=== PATIENT | female | born 1970 | race Caucasian/White ===

== ENCOUNTER 2016-08-07 08:22 | Emergency (ER) | payer MEDICAID ==
[2016-08-07 08:51] VITALS: RESP 18
--- NOTE | 2016-08-07 09:58 | ED PDOC ---
Arrival/HPI - General Historian: Patient - General Chief Complaint: Upper Extremity Problem/Injury Time Seen by Provider: 08/07/16 09:01 - History of Present Illness Narrative History of Present Illness (Text): 08/07/16 09:55 45yo female with no PMHx present with complaint of left sided shoulder pain that radiates to her hands. States pain is intermittent and "shooting". also radiates to her neck. States pain started early this morning. Took 2tabs of Advil at 0700am without relieve. Pain is worse with abduction of left arm. Denies trauma, chest pain, paresthesia, focal weakness, any other complaint. ( Jame Mathias A) Past Medical History - Provider Review Nursing Documentation Reviewed: Yes - Infectious Disease Hx of Infectious Diseases: None - Musculoskeletal/Rheumatological Hx Arthritis: Yes - Psychiatric Hx Substance Use: No - Surgical History Other/Comment: Right foot surgery Family/Social History - Physician Review Nursing Documentation Reviewed: Yes Family/Social History: Unknown Family HX Smoking Status: Never Smoked Hx Alcohol Use: Yes Frequency of alcohol use: Socially Hx Substance Use: No Allergies/Home Meds Allergies/Adverse Reactions: Allergies No Known Allergies Allergy (Verified 08/07/16 08:45) Review of Systems - Physician Review All systems were reviewed & negative as marked: Yes - Review of Systems Constitutional: Normal Eyes: Normal ENT: Normal Respiratory: Normal Cardiovascular: Normal Gastrointestinal: Normal Genitourinary Female: Normal Musculoskeletal: Arthralgias (Left shoulder pain) Skin: Normal Neurological: Normal Endocrine: Normal Hemo/Lymphatic: Normal Psychiatric: Normal Physical Exam Vital Signs Reviewed: Yes Temperature: Afebrile Blood Pressure: Normal Pulse: Regular Respiratory Rate: Normal Appearance: Positive for: Well-Appearing, Non-Toxic, Comfortable Pain Distress: None Mental Status: Positive for: Alert and Oriented X 3 - Systems Exam Head: Present: Atraumatic, Normocephalic Pupils: Present: PERRL Extroacular Muscles: Present: EOMI Conjunctiva: Present: Normal Mouth: Present: Moist Mucous Membranes Neck: Present: Normal Range of Motion Respiratory/Chest: Present: Clear to Auscultation, Good Air Exchange. No: Respiratory Distress, Accessory Muscle Use Cardiovascular: Present: Regular Rate and Rhythm, Normal S1, S2. No: Murmurs Abdomen: Present: Normal Bowel Sounds. No: Tenderness, Distention, Peritoneal Signs Back: Present: Normal Inspection Upper Extremity: Present: Tenderness (Left proximal shoulder), Neurovascularly Intact, Capillary Refill < 2s, Norm 2-Pt Discrimination. No: Cyanosis, Edema, Normal ROM (Limited on Abduction up to 90degree), Swelling, Erythema, Temperature Abnormalties, Deformity Lower Extremity: Present: Normal Inspection. No: Edema Neurological: Present: GCS=15, CN II-XII Intact, Speech Normal Skin: Present: Warm, Dry, Normal Color. No: Rashes Psychiatric: Present: Alert, Oriented x 3, Normal Insight, Normal Concentration Vital Signs Temp Pulse Resp BP Pulse Ox 08/07/16 10:00 98.2 F 75 18 124/71 99 08/07/16 09:29 79 18 126/75 98 08/07/16 08:51 98.4 F 81 18 128/79 98 08/07/16 08:37 98.4 F 81 16 128/79 99 Medical Decision Making ED Course and Treatment: I was available for consultation during PA evaluation. The chart was reviewed by me, and I agree with disposition. The documented history was done by the physician vapor coater. The documented physical exam was done by the physician vapor coater. The documented procedures were done by the physician vapor coater. (Paul Queen) 08/07/16 19:23 Left shoulder xray - No acute finding noted Pt's pain was controlled in ED with medication. Result was DW the pt. She was DC home with a referral to the PMD/ortho. TRT ED for any new or worsening symptoms. (Jame Mathias) - RAD Interpretation Radiology Orders: 08/07/16 09:01 SHOULDER LEFT [RAD] Stat - Medication Orders Current Medication Orders: Discontinued Medications Ketorolac Tromethamine (Toradol) 60 mg IM STAT STA Stop: 08/07/16 09:02 Last Admin: 08/07/16 10:06 Dose: 60 MG IM Administration Charges Document 08/07/16 10:06 SS (Rec: 08/07/16 10:14 SS [id number]) Injection Site MAR Injection Site Left Gluteus Isaac Charges for Administration # of IM Administrations 1 Disposition/Present on Arrival - Present on Arrival Any Indicators Present on Arrival: No History of DVT/PE: No History of Uncontrolled Diabetes: No Urinary Catheter: No History of Decub. Ulcer: No History Surgical Site Infection Following: None - Disposition Have Diagnosis and Disposition been Completed?: Yes Disposition Time: 10:30 Patient Plan: Discharge - Disposition Diagnosis: Shoulder pain Disposition: HOME/ ROUTINE Condition: STABLE Discharge Instructions (ExitCare): Shoulder Pain (ED) Additional Instructions: Follow up with your doctor/Orthopedist Return to ED for any new or worsening symptoms Prescriptions: Naproxen [Naprosyn] 500 mg PO BID #20 tab Referrals: PCP,NO [Primary Care Provider] - Follow up with primary Wilian Gore III, MD [Medical Doctor] - Follow up with primary Forms: WORK NOTE
--- NOTE | 2016-08-07 10:11 | RAD ---
PROCEDURE: Radiographs of the Left Shoulder HISTORY: shoulder pain COMPARISON: No prior. FINDINGS: BONES: Normal. No fracture. JOINTS: Normal. Glenohumeral and acromioclavicular joints preserved. No osteoarthritis. SOFT TISSUES: Normal. OTHER FINDINGS: None. IMPRESSION: Normal radiographs of the left shoulder.
[2016-08-07 10:34] VITALS: BP 124/71; PULSE 75; TEMP 98.2; O2SAT 99
== END 2016-08-07 10:46 | disposition home or self-care (01) ==
LOC: ED 08:22 → MERGE 08:22 → ED 10:46
DX: M25.512 Pain in left shoulder (principal)
CPT/HCPCS: 73030; 96372; 99284; J1885